=== PATIENT | male | born 1970 | race Caucasian/White ===

== ENCOUNTER 2019-06-16 18:08 | Observation (INO) | payer OTHER ==
[2019-06-16] MEDS ORDERED: NITROGLYCERIN SL TABS 0.4 MG TAB SUBLINGUAL STA (18:42)
[2019-06-16 19:03] LABS: Basophils # (A) 0.1 k/uL (0-0.2); Basophils % (A) 1 %; Eosinophils # (A) 0.2 k/uL (0-0.7); Eosinophils % (A) 2 %; HCT 48.1 % (39.0-53.0); HGB 15.6 gm/dL (13.0-17.5); Lymphocytes # (A) 2.2 k/uL (1.0-4.8); Lymphocytes % (A) 25 %; MCH 28.8 pg (25.0-35.0); MCHC 32.4 g/dL (31.0-37.0); MCV 88.7 fL (80.0-100.0); Mean Platelet Volume 7.4; Monocytes # (A) 0.5 k/uL (0-1.0); Monocytes % (A) 5 %; Neutrophils # (A) 5.7 k/uL (1.3-7.7); Neutrophils % (A) 64 %; Platelet Count 246 k/uL (150-450); RBC 5.42 m/uL (4.30-5.90); WBC 8.8 k/uL (3.8-10.6)
[2019-06-16 19:13] LABS: ALT 26 U/L (4-49); AST 31 U/L (17-59); African American GFR (CKD) >90 (>60 ml/min/1.73 sqM); Albumin 4.6 g/dL (3.5-5.0); Alkaline Phosphatase 60 U/L (38-126); Anion Gap 11 mmol/L; Blood Urea Nitrogen 24 mg/dL (9-20); Calcium 9.5 mg/dL (8.4-10.2); Carbon Dioxide 23 mmol/L (22-30); Chloride 106 mmol/L (98-107); Glucose 116 mg/dL (74-99); Magnesium 2.1 mg/dL (1.6-2.3); Non-African American GFR(CKD) 79 (>60 ml/min/1.73 sqM); Sodium 140 mmol/L (137-145); Total Bilirubin 0.6 mg/dL (0.2-1.3); Total Protein 7.4 g/dL (6.3-8.2)
[2019-06-16 19:21] LABS: D-Dimer 0.2 mg/L FEU (<0.60); Partial Thromboplastin Time 25.2 sec (22.0-30.0)
--- NOTE | 2019-06-16 19:25 | XR ---
EXAMINATION TYPE: XR chest 2V DATE OF EXAM: 06/16/2019 COMPARISON: NONE HISTORY: Chest pain TECHNIQUE: FINDINGS: Heart and mediastinum are normal. Lungs are clear. Diaphragm is normal. Bony thorax appears normal. There are chest leads. IMPRESSION: Normal chest.
--- NOTE | 2019-06-16 20:46 | ED ---
Chest Pain HPI - General Chief Complaint: Chest Pain Stated Complaint: Chest pressure Time Seen by Provider: 06/16/19 18:20 Source: patient Mode of arrival: ambulatory Limitations: no limitations - History of Present Illness Initial Comments: The patient is a 48-year-old male with no past medical history who presentsto the emergency room with reported chest pain. He states that it started yesterday. He describes it as a pressure sensation and feels as if something is sitting on his chest. He denies a previous history of cardiac disease. No ripping or tearing sensation to his back. He denies associated nausea, vomiting or diaphoresis. No cough or hemoptysis. He does smoke 10 cigarettes daily. He has a large family history of cardiac disease. States he had multiple uncles that from [place]. Denies abdominal pain. No unilateral numbness or weakness. There are no alleviating, precipitating or modifying factors - Related Data Previous Rx's Medication Instructions Recorded Omeprazole [PriLOSEC] 20 mg PO AC-BID #60 cap 06/17/19 Allergies Allergy/AdvReac Type Severity Reaction Status Date / Time No Known Allergies Allergy Verified 06/17/19 08:23 Review of Systems ROS Statement: Those systems with pertinent positive or pertinent negative responses have been documented in the HPI. ROS Other: All systems not noted in ROS Statement are negative. EKG Findings - EKG Comments: EKG Findings:: EKG demonstrates a sinus bradycardia with a ventricular rate of 49. GA interval 164. QRS 98. QTC of 404. No acute ST segment elevations or depressions concerning for ischemic changes. There is J-point elevation in the inferior and lateral leads. No reciprocal changes Past Medical History Past Medical History: No Reported History History of Any Multi-Drug Resistant Organisms: None Reported Past Surgical History: No Surgical Hx Reported Past Psychological History: No Psychological Hx Reported Smoking Status: Current every day smoker Past Alcohol Use History: Occasional Past Drug Use History: None Reported - Past Family History Mother Additional Family Medical History / Comment(s): desmoid tumor Father Family Medical History: No Reported History Brother(s) Family Medical History: No Reported History Son(s) Family Medical History: No Reported History General Exam Limitations: no limitations General appearance: alert, in no apparent distress Head exam: Present: atraumatic, normocephalic, normal inspection Eye exam: Present: normal appearance, PERRL, EOMI. Absent: scleral icterus, conjunctival injection, periorbital swelling ENT exam: Present: normal exam, mucous membranes moist Neck exam: Present: normal inspection. Absent: tenderness, meningismus, lymphadenopathy Respiratory exam: Present: normal lung sounds bilaterally. Absent: respiratory distress, wheezes, rales, rhonchi, stridor Cardiovascular Exam: Present: regular rate, normal rhythm, normal heart sounds. Absent: systolic murmur, diastolic murmur, rubs, gallop, clicks GI/Abdominal exam: Present: soft, normal bowel sounds. Absent: distended, tenderness, guarding, rebound, rigid Extremities exam: Present: normal inspection, full ROM, normal capillary refill. Absent: tenderness, pedal edema, joint swelling, calf tenderness Back exam: Present: normal inspection Neurological exam: Present: alert, oriented X3, CN II-XII intact Psychiatric exam: Present: normal affect, normal mood Skin exam: Present: warm, dry, intact, normal color. Absent: rash Course Vital Signs 06/16/19 06/16/19 06/16/19 18:18 18:30 20:59 Temperature 97.8 F Pulse Rate 60 51 L Pulse Rate [ 42 L Lean Sensei ] Pulse Rate [ Pulse Oximetery ] Respiratory 18 20 16 Rate Blood Pressure 133/73 125/88 Blood Pressure [Right Arm] O2 Sat by Pulse 98 97 Oximetry 06/16/19 21:43 Temperature 97.4 F L Pulse Rate Pulse Rate [ Lean Sensei ] Pulse Rate [ 56 L Pulse Oximetery ] Respiratory 16 Rate Blood Pressure Blood Pressure 124/63 [Right Arm] O2 Sat by Pulse 97 Oximetry Chest Pain MDM - MDM Upon arrival the patient is placed in room 4. A thorough history and physical exam was performed. EKG was performed which demonstrates no acute ST segment elevations. I did recommend laboratory studies and a chest x-ray. I did offer the patient something for pain control however refused. CBC and CPR unremarkable. D-dimer is negative. First troponin is negative. Chest x-ray demonstrates no acute findings. I did recommend hospital admission because of the patient's concerning story with risk factors. The patient did agree to this. A call discuss case with Dr. Salazar who accepted admission. The patient was transferred to the floor in stable condition Disposition Clinical Impression: Chest pain Disposition: ADMITTED IP TO THIS HOSP Condition: Stable Is patient prescribed a controlled substance at d/c from ED?: No Decision to Admit Reason: Admit from EC Decision Date: 06/16/19 Decision Time: 20:46
[2019-06-16] MEDS ORDERED: NALOXONE 0.4 MG/ML 1 ML VIAL IV PRN (20:47)
[2019-06-16] MEDS ORDERED: ASPIRIN 81 MG PO STA (23:11)
[2019-06-16] MEDS ORDERED: CLOPIDOGREL 75 MG TAB PO STA (23:12)
[2019-06-16] MEDS ORDERED: ATORVASTATIN 80 MG TAB PO STA (23:12)
--- NOTE | 2019-06-16 23:20 | P.HPIM ---
History of Present Illness H&P Date: 06/16/19 Patient is a 48-year-old male with a PMH of tobacco abuse who presented to the ED with complaints of substernal chest discomfort. The patient notes that since yesterday at around 3 PM, he has noticed a pressure like substernal discomfort, nonradiating, without associated symptoms, unable to quantify, no clear alleviating or exacerbating factors, intermittent, though not completely resolved since onset. The patient reports that he never had such symptoms in the past. He denied recent travel, leg pain, lower extremity swelling, shortness of breath, nausea, vomiting, diaphoresis, dizziness, headache. The patient reports a significant family history of cardiac issues with multiple family members who in their 40s from heart attacks. The patient has not seen a primary care physician in several years. He reportedly leads a very active lifestyle. At time of interview, he notes that he continues to have the discomfort, though it is not as severe as before. He denied any additional complaints at the interview. The patient underwent an extensive evaluation in the emergency room with troponin less than 0.012, WBC count 8.8, hemoglobin 15.6, platelets 246, sodium 140, potassium 4.0, BUN 24, creatinine 1.09, glucose 116, d-dimer 0.20, and proBNP 42. EKG revealed sinus bradycardia with PVCs at 49 bpm. Chest x-ray was unremarkable. The patient is being admitted to the [facility] service for cardiology evaluation for chest pain. Review of Systems Pertinent positives and negatives as discussed in HPI, a complete review of systems was performed and all other systems are negative. Past Medical History Past Medical History: No Reported History History of Any Multi-Drug Resistant Organisms: None Reported Past Surgical History: No Surgical Hx Reported Additional Past Anesthesia/Blood Transfusion Reaction / Comment(s): never had a surgery or blood transfusion Past Psychological History: No Psychological Hx Reported Smoking Status: Current every day smoker Past Alcohol Use History: Occasional Past Drug Use History: None Reported - Past Family History Mother Additional Family Medical History / Comment(s): desmoid tumor Father Family Medical History: No Reported History Brother(s) Family Medical History: No Reported History Son(s) Family Medical History: No Reported History Medications and Allergies Allergies Allergy/AdvReac Type Severity Reaction Status Date / Time No Known Allergies Allergy Verified 06/16/19 22:22 Physical Exam Vitals: Vital Signs Temp Pulse Pulse Pulse Resp BP BP 06/16/19 21:43 97.4 F L 56 L 16 124/63 06/16/19 20:59 51 L 16 125/88 06/16/19 18:30 42 L 20 06/16/19 18:18 97.8 F 60 18 133/73 Pulse Ox 06/16/19 21:43 97 06/16/19 20:59 97 06/16/19 18:30 06/16/19 18:18 98 Intake and Output 06/16/19 06/16/19 06/17/19 14:59 22:59 06:59 Other: Voiding Method Toilet Weight 81.647 kg General: non toxic, no distress, appears at stated age, overweight Derm: no unusual rashes/lesions no unusual ecchymoses, warm, dry Head: atraumatic, normocephalic, symmetric Eyes: EOMI, no lid lag, anicteric sclera, pupils equal round reactive to light ENT: Nose and ears atraumatic, no thrush, no pharyngeal erythema Neck: No thyromegaly, no cervical lymphadenopathy, trachea midline, supple Mouth: no lip lesion, mucus membranes moist Cardiovascular: S1S2 reg, no murmur, positive posterior tibial pulse bilateral, no edema, capillary refill less than 2 seconds, no chest wall tenderness on palpation Lungs: CTA bilateral, no rhonchi, no rales , no accessory muscle use Abdominal: soft, nontender to palpation, no guarding, no appreciable organomegaly, normal bowel sounds Ext: no gross muscle atrophy, muscle strength 5 out of 5 in all 4 extremities grossly, no contractures, Neuro: CN II-XI grossly intact, light touch intact all 4 extremities, finger to nose within normal limits, Psych: Alert, oriented, appropriate affect Results CBC & Chem 7: 06/16/19 18:53 06/16/19 18:53 Labs: Abnormal Lab Results - Last 24 Hours (Table) 06/16/19 Range/Units 18:53 BUN 24 H (9-20) mg/dL Glucose 116 H (74-99) mg/dL Thrombosis Risk Factor Assmnt - Choose All That Apply Any of the Below Risk Factors Present?: Yes Each Factor Represents 1 point: Obesity (BMI >25) Other Risk Factors: No Other congenital or acquired thrombophilia - If yes, enter type in comment: No Thrombosis Risk Factor Assessment Total Risk Factor Score: 1 Thrombosis Risk Factor Assessment Level: Low Risk Assessment and Plan Plan: Chest pain, rule out ACS -Cardiac monitoring -ASA 325 mg once and then daily -Plavix 75 mg once -Lipitor -Cardiology consult -Trend troponins -Obtain lipid panel, and A1c SAVITA, likely prerenal -Gentle IV hydration -Monitor BMP DVT prophylaxis -Rodney Score: 1 - low risk -IPCDs The patient is admitted with an anticipated less than 2 midnight stay for evaluation of chest pain CODE STATUS: Full Code Discussed with: Patient Anticipated discharge date: 1-[address]: Home A total of 35 minutes was spent on the care of this complex patient more than 50% of the time was spent in counseling and care coordination.
[2019-06-16] MEDS: SODIUM CHLORIDE 0.9% 1,000 ML IV SCH (23:47)
[2019-06-17 07:29] LABS: African American GFR (CKD) >90 (>60 ml/min/1.73 sqM); Anion Gap 8 mmol/L; Blood Urea Nitrogen 21 mg/dL (9-20); Calcium 9.2 mg/dL (8.4-10.2); Carbon Dioxide 24 mmol/L (22-30); Chloride 107 mmol/L (98-107); Glucose 96 mg/dL (74-99); Non-African American GFR(CKD) 88 (>60 ml/min/1.73 sqM); Potassium 4.7 mmol/L (3.5-5.1); Sodium 139 mmol/L (137-145)
[2019-06-17 07:55] LABS: Cholesterol 195 mg/dL (<200); HDL Cholesterol 54 mg/dL (40-60); LDL Cholesterol,Calculated 122 mg/dL (0-99); Triglycerides 96 mg/dL (<150)
[2019-06-17 08:06] VITALS: RESP 18
[2019-06-17] MEDS ORDERED: ASPIRIN 81 MG PO SCH (09:00)
--- NOTE | 2019-06-17 11:38 | P.CRDCN ---
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 Patient claims about 3 days ago while he was standing at the door, he developed a tight feeling across the chest as if somebody was sitting on his chest. The pain continued until next day. He went to the urgent care where he was evaluated by EKG. His EKG showed mild sinus bradycardia. Subsequently patient was referred to emergency room. Patient is admitted again with chest pain and it appeared that his pain improved after he received analgesic last night. His EKGs and cardiac enzymes are negative. Patient doesn't have any history of hypertension, diabetes, hypercholesterolemia or previous cardiac history. His maternal uncle had premature coronary artery disease. Mother had a pacemaker and father had a stroke. Patient's pains could be atypical angina. Patient is being scheduled for a stress echocardiogram and also surface echocardiogram. If the results of the tests were normal, patient could be discharged home. Review of Systems As per the chart Past Medical History Past Medical History: No Reported History History of Any Multi-Drug Resistant Organisms: None Reported Past Surgical History: No Surgical Hx Reported Additional Past Anesthesia/Blood Transfusion Reaction / Comment(s): never had a surgery or blood transfusion Past Psychological History: No Psychological Hx Reported Smoking Status: Current every day smoker Past Alcohol Use History: Occasional Past Drug Use History: None Reported - Past Family History Mother Additional Family Medical History / Comment(s): desmoid tumor Father Family Medical History: No Reported History Brother(s) Family Medical History: No Reported History Son(s) Family Medical History: No Reported History Medications and Allergies Home Medications Medication Instructions Recorded Confirmed Type No Known Home Medications 06/17/19 06/17/19 History Allergies Allergy/AdvReac Type Severity Reaction Status Date / Time No Known Allergies Allergy Verified 06/17/19 08:23 Physical Exam Vitals: Vital Signs Temp Pulse Pulse Pulse Resp BP BP 06/17/19 08:00 48 L 18 06/17/19 07:55 98.1 F 48 L 18 112/69 06/17/19 04:00 97.8 F 54 L 16 99/62 06/17/19 00:00 97.8 F 50 L 16 106/61 06/16/19 21:43 97.4 F L 56 L 16 124/63 06/16/19 20:59 51 L 16 125/88 06/16/19 18:30 42 L 20 06/16/19 18:18 97.8 F 60 18 133/73 Pulse Ox 06/17/19 08:00 06/17/19 07:55 99 06/17/19 04:00 99 06/17/19 00:00 96 06/16/19 21:43 97 06/16/19 20:59 97 06/16/19 18:30 06/16/19 18:18 98 Intake and Output 06/16/19 06/17/19 06/17/19 22:59 06:59 14:59 Other: Voiding Method Toilet Toilet Toilet Weight 81.647 kg GENERAL EXAM: Patient is alert and oriented and doesn't appear to be in any acute distress HEENT: Normocephalic. Normal reaction of pupils, equal size, normal range of extraocular motion. No erythema or exudates in the throat. NECK: No masses, no nuchal rigidity. CHEST: No chest wall deformity. LUNGS: Equal air entry with no crackles or wheeze. HEART: S1 and S2 normal with no audible mumurs or gallops. Regular rhythm, femorals equal on both sides.. ABDOMEN: No hepatosplenomegaly, normal bowel sounds, no guarding or rigidity. SKIN: No rashes CENTRAL NERVOUS SYSTEM: No focal deficits. EXTREMITIES: No cyanosis, clubbing or edema. Results 06/16/19 18:53 06/17/19 06:33 Cardiac Enzymes 06/16/19 06/16/19 06/17/19 Range/Units 18:53 18:53 01:08 AST 31 (17-59) U/L Troponin I <0.012 <0.012 (0.000-0.034) ng/mL 06/17/19 Range/Units 06:33 AST (17-59) U/L Troponin I <0.012 (0.000-0.034) ng/mL Coagulation 06/16/19 Range/Units 18:53 PT 10.0 (9.0-12.0) sec APTT 25.2 (22.0-30.0) sec Lipids 06/17/19 Range/Units 06:33 Triglycerides 96 (<150) mg/dL Cholesterol 195 (<200) mg/dL HDL Cholesterol 54 (40-60) mg/dL CBC 06/16/19 Range/Units 18:53 WBC 8.8 (3.8-10.6) k/uL RBC 5.42 (4.30-5.90) m/uL Hgb 15.6 (13.0-17.5) gm/dL Hct 48.1 (39.0-53.0) % Plt Count 246 (150-450) k/uL Comprehensive Metabolic Panel 06/16/19 06/17/19 Range/Units 18:53 06:33 Sodium 140 139 (137-145) mmol/L Potassium 4.0 4.7 (3.5-5.1) mmol/L Chloride 106 107 (98-107) mmol/L Carbon Dioxide 23 24 (22-30) mmol/L BUN 24 H 21 H (9-20) mg/dL Creatinine 1.09 0.99 (0.66-1.25) mg/dL Glucose 116 H 96 (74-99) mg/dL Calcium 9.5 9.2 (8.4-10.2) mg/dL AST 31 (17-59) U/L ALT 26 (4-49) U/L Alkaline Phosphatase 60 (38-126) U/L Total Protein 7.4 (6.3-8.2) g/dL Albumin 4.6 (3.5-5.0) g/dL Current Medications Generic Name Dose Route Start Last Admin Trade Name Freq PRN Reason Stop Dose Admin Aspirin 81 mg 06/17/19 09:00 06/17/19 10:19 Aspirin PO 81 mg DAILY SMITH Administration Sodium Chloride 1,000 mls @ 75 mls/hr 06/16/19 23:15 06/16/19 23:47 Saline 0.9% IV Not Given .[id number] SMITH Naloxone HCl 0.2 mg 06/16/19 20:47 Narcan IV Q2M PRN Opioid Reversal Intake and Output 06/16/19 06/17/19 06/17/19 22:59 06:59 14:59 Other: Voiding Method Toilet Toilet Toilet Weight 81.647 kg 06/16/19 18:53 06/17/19 06:33 EKG Interpretations (text) Sinus bradycardia Assessment and Plan (1) Sinus bradycardia Current Visit: Yes Status: Acute Code(s): R00.1 - BRADYCARDIA, UNSPECIFIED SNOMED Code(s): 31722638 (2) Chest pain Current Visit: Yes Status: Acute Code(s): R07.9 - CHEST PAIN, UNSPECIFIED SNOMED Code(s): 79514035 (3) Family history of ischemic heart disease Current Visit: Yes Status: Acute Code(s): Z82.49 - FAMILY HX OF ISCHEM HEART DIS AND OTH DIS OF THE CIRC SYS SNOMED Code(s): 222931300 Plan: Patient is being scheduled for a stress echocardiogram and also surface echocardiogram. If these tests are normal, patient could be discharged home
[2019-06-17] MEDS: SODIUM CHLORIDE 0.9% 1,000 ML IV SCH (12:53)
--- NOTE | 2019-06-17 13:00 | ECHOF ---
Referral Reason:Chest pain and cardiomyopathy MEASUREMENTS -------- HEIGHT: 170.2 cm WEIGHT: 81.6 kg BP: IVSd: 1.1 cm (0.6 - 1.1) LVIDd: 2.6 cm (3.9 - 5.3) LVPWd: 1.1 cm (0.6 - 1.1) IVSs: 1.8 cm LVIDs: 1.6 cm LVPWs: 1.7 cm LAESV Index (A-L): 23.98 ml/m Ao Diam: 2.7 cm (2.0 - 3.7) AV Cusp: 1.8 cm (1.5 - 2.6) LA Diam: 3.3 cm (2.7 - 3.8) MV EXCURSION: 14.054 mm (> 18.000) MV EF SLOPE: 80 mm/s (70 - 150) EPSS: 0.5 cm MV E Alex: 0.83 m/s MV DecT: 342 ms MV A Alex: 0.71 m/s MV E/A Ratio: 1.17 RAP: 5.00 mmHg RVSP: 19.98 mmHg TAPSE: 30.02 mm FINDINGS -------- Sinus rhythm with extra systolic beats. This was a technically good study. The left ventricular size is normal. Left ventricular wall thickness is normal. Overall left vent ricular systolic function is normal with, an EF between 55 - 60 %. The diastolic filling pattern is normal for the age of the patient 11.97. The right ventricle is normal in size. The right ventricular systolic function is normal. The left atrial size is normal. Normal LA size by volume 22+/-6 ml/m2. The right atrial size is normal. Aortic valve is trileaflet and is mildly thickened. The mitral valve is normal. The mitral valve leaflets are mildly thickened. Mild mitral regurgita tion is present. Mild tricuspid regurgitation present. Right ventricular systolic pressure is normal at < 35 mmHg. There is no pulmonic regurgitation present. The aortic root size is normal. IVC Not well visulized. There is no pericardial effusion. CONCLUSIONS -------- 1. Sinus rhythm with extra systolic beats. 2. This was a technically good study. 3. The left ventricular size is normal. 4. Left ventricular wall thickness is normal. 5. Overall left ventricular systolic function is normal with, an EF between 55 - 60 %. 6. The diastolic filling pattern is normal for the age of the patient 11.97 7. The right ventricle is normal in size. 8. The right ventricular systolic function is normal. 9. The left atrial size is normal. 10. Normal LA size by volume 22+/-6 ml/m2. 11. The right atrial size is normal. 12. Aortic valve is trileaflet and is mildly thickened. 13. The mitral valve is normal. 14. The mitral valve leaflets are mildly thickened. 15. Mild mitral regurgitation is present. 16. Mild tricuspid regurgitation present. 17. Right ventricular systolic pressure is normal at < 35 mmHg. 18. There is no pulmonic regurgitation present. 19. The aortic root size is normal. 20. IVC Not well visulized. 21. There is no pericardial effusion. ADMINISTRATIVE OFFICE ASSISTANT: Anni Castaneda RDCS
--- NOTE | 2019-06-17 13:10 | P.STRESS ---
- Stress Test Note Stress Test Results/Findings: Exam Performed: stress echo exercise Exam Date: 06/17/19 Reason for Exam: CHEST PAIN Height: 5 ft 7 in Weight: 81.65 kg Protocol: STRESS ECHO Stage: 4 Duration of Exercise: 12:30 MINUTES Resting Heart Rate: 48 Resting Blood Pressure: 110/71 Maximum Achieved Heart Rate: 147 Maximum Achieved Blood Pressure: 197/39 85% PMHR: 145 100% PMHR: 170 METS: 12.7 Technologist Comment: Stress Test Results/Findings: This is a 48-year-old gentleman was admitted to the hospital with complaints of chest pain. History of smoking and family history of ischemic heart disease. Stress data: Baseline EKG showed sinus rhythm and sinus bradycardia. Blood pressure at rest is 110/70 with pulse rate of 48. Patient walked on the Ahmet protocol for 12 minutes and 30 seconds achieving a maximum heart rate of 147 with a blood pressure 165/80. EKGs taken during and after x-ray did not reveal any changes of ischemia. Echo data: Baseline echo images show normal wall motion and thickening. Exercise echo images showed augmentation of wall motion and thickening in all segments. Final impression: #1. Negative stress test #2. Negative stress echo
[2019-06-17 13:14] VITALS: BP 140/63; PULSE 58
[2019-06-17 13:15] VITALS: TEMP 97.6
--- NOTE | 2019-06-17 14:49 | P.DS ---
Providers Date of admission: 06/16/19 20:47 Attending physician: Vance Salazar MD Consults: 06/16/19 20:47 Consult Physician Urgent Consulting Provider: [facility] Consult Reason/Comments: acute chest pain Do you want consulting provider notified?: Yes Primary care physician: Stated None Hospital Course: Final diagnoses at discharge Chest pain from heartburn Negative stress test Hospital course 48-year-old male with active tobacco smoking nicotine dependence. Comes in for substernal chest pain described as pressure. He was evaluated by cardiology stress test was done and was negative patient was cleared by cardiology for discharge. Patient reports long-standing history of heartburn with off-and-on symptoms. Patient was given aspirin and sublingual nitro. Troponins were negative 3, initial EKG showed sinus bradycardia with premature ventricular complexes. Patient was seen and examined on discharge currently asymptomatic denies any chest pain or trouble breathing we had long discussion regarding heartburn and how to decrease the severity of symptoms and recommendations regarding having an EGD Patient alert oriented 3 conversant pleasant Clear to auscultation bilaterally no wheezes rhonchi or rales Heart regular S1-S2 no murmurs gallops or rubs Extremities no tenderness to palpation bilaterally over the calf muscles, no leg edema Patient was given resources for outpatient PCP Patient discharged in stable clinical condition case discussed with the patient and his parents at bedside questions answered Prescription for PPI was sent to the pharmacy 20 minutes were spent in the discharge of this patient 50% of the time was spent counseling and Trish care Procedures: negative stress test Patient Condition at Discharge: Stable Plan - Discharge Summary Discharge Rx Participant: No New Discharge Prescriptions: New Omeprazole [PriLOSEC] 20 mg PO AC-BID #60 cap Discharge Medication List Omeprazole [PriLOSEC] 20 mg PO AC-BID #60 cap 06/17/19 [Rx] Follow up Appointment(s)/Referral(s): None,Stated [Primary Care Provider] - 1-2 days Brian Parish MD [STAFF PHYSICIAN] - 1 Week Mer Leigh MD [STAFF PHYSICIAN] - 1 Week Patient Instructions/Handouts: Chest Pain (ED), Gastroesophageal Reflux Disease (DC) Discharge Disposition: HOME SELF-CARE Care Plan Goals (MU): consider OP EGD
== END 2019-06-17 15:44 | disposition home or self-care (01) ==
LOC: EC 18:08 → 1SOBS 20:47
PROVIDERS: ADMIT Internal Medicine; ATTEND Internal Medicine
DX: R07.89 Other chest pain (principal); R12 Heartburn; N17.9 Acute kidney failure, unspecified; F17.210 Nicotine dependence, cigarettes, uncomplicated; R00.1 Bradycardia, unspecified; Z79.899 Other long term (current) drug therapy; Z82.49 Family history of ischemic heart disease and other diseases of the circulatory system; I34.0 Nonrheumatic mitral (valve) insufficiency; I07.1 Rheumatic tricuspid insufficiency
CPT/HCPCS: 93005 ×2; 99285; 36415; 93306; 93351; 85379; 83880; 80061; 80053; 80048; 83690; 83735; 84484 ×2; 85025; 85610; 85730; 71046; G0378 ×2

== ENCOUNTER 2021-01-06 14:10 | Emergency (ER) | payer OTHER ==
--- NOTE | 2021-01-06 15:36 | ED ---
Fall HPI - General Chief Complaint: Fall Stated Complaint: [facility] - fall, back pain Time Seen by Provider: 01/06/21 15:35 Source: patient Mode of arrival: ambulatory - History of Present Illness Initial Comments: Ryan is a healthy 50-year-old gentleman who presents the ER today via private vehicle for evaluation of back pain after fall. Patient works for a [employer], he was attempting to move a lawnmower truck onto his landing, he misstepped and injured up hopping backwards off a three-foot ledge landing directly on his feet. It told him so bad when THE wind out of him. He's had persistent thoracic back pain since that time. He has been ambulatory with minimal pain in his feet. Came to ER for evaluation of back pain. - Related Data Previous Rx's Medication Instructions Recorded Omeprazole [PriLOSEC] 20 mg PO AC-BID #60 cap 06/17/19 Allergies Allergy/AdvReac Type Severity Reaction Status Date / Time No Known Allergies Allergy Verified 01/06/21 15:24 Review of Systems ROS Statement: Those systems with pertinent positive or pertinent negative responses have been documented in the HPI. ROS Other: All systems not noted in ROS Statement are negative. Past Medical History Past Medical History: No Reported History History of Any Multi-Drug Resistant Organisms: None Reported Past Surgical History: No Surgical Hx Reported Additional Past Anesthesia/Blood Transfusion Reaction / Comment(s): never had a surgery or blood transfusion Past Psychological History: No Psychological Hx Reported Smoking Status: Current every day smoker Past Alcohol Use History: Occasional Past Drug Use History: Marijuana - Past Family History Mother Additional Family Medical History / Comment(s): desmoid tumor Father Family Medical History: No Reported History Brother(s) Family Medical History: No Reported History Son(s) Family Medical History: No Reported History General Exam - General Exam Comments Initial Comments: Physical Exam GENERAL: Patient is well-developed and well-nourished. Patient is nontoxic and well- hydrated and is in no distress. HENT: Normocephalic, Atraumatic. EYES: PERRL, EOMI PULMONARY: Unlabored respirations. No audible rales rhonchi or wheezing was noted. CARDIOVASCULAR: There is a regular rate and rhythm without any murmurs gallops or rubs. ABDOMEN: Soft and nontender with normal bowel sounds. SKIN: Skin is clear with no lesions or rashes and otherwise unremarkable. : Deferred NEUROLOGIC: Patient is alert and oriented x3. Moving all extremities spontaneously MUSCULOSKELETAL: Midline spinal tenderness at approximately T9 through T11 PSYCHIATRIC: Normal psychiatric evaluation. Limitations: no limitations Course Vital Signs 01/06/21 15:19 Temperature 98.1 F Pulse Rate 58 L Respiratory 17 Rate Blood Pressure 147/75 O2 Sat by Pulse 97 Oximetry Medical Decision Making - Medical Decision Making She was seen and evaluated, physical exam is relatively unremarkable, x-rays were obtained and were negative for any acute findings, patient declined pain medication as he took Motrin prior to arrival. Patient is discharged home in stable condition. Disposition Clinical Impression: Fall Disposition: HOME SELF-CARE Condition: Stable Instructions (If sedation given, give patient instructions): Fall Prevention (ED) Is patient prescribed a controlled substance at d/c from ED?: No Referrals: None,Stated [Primary Care Provider] - 1-2 days
--- NOTE | 2021-01-06 16:25 | XR ---
EXAMINATION TYPE: XR calcaneus 2V BILATERAL DATE OF EXAM: 01/06/2021 COMPARISON: NONE HISTORY: Fall injury with pain TECHNIQUE: 2 views bilateral calcanei. FINDINGS: No acute fracture or dislocation in either calcaneus. Boehler's angle is maintained bilater ally. Soft tissues are unremarkable bilaterally. IMPRESSION: As above.
--- NOTE | 2021-01-06 16:26 | XR ---
EXAMINATION TYPE: XR lumbar spine 2 or 3V DATE OF EXAM: 01/06/2021 CLINICAL HISTORY: Fall injury with pain TECHNIQUE: Frontal and lateral images of the lumbar spine are obtained. COMPARISON: None FINDINGS: There are 5 lumbar type vertebral bodies identified. The lumbar spine shows satisfactory alignment without evidence of acute fracture or dislocation. Vertebral body heights and disk space he ights are within normal limits. Spina bifida defect at S1 level incidentally noted. Mild distal arter ial vascular calcification. IMPRESSION: No acute fracture or dislocation is seen in the lumbar spine.
--- NOTE | 2021-01-06 16:28 | XR ---
EXAMINATION TYPE: XR thoracic spine complete DATE OF EXAM: 01/06/2021 CLINICAL HISTORY: Fall injury with mid back pain. TECHNIQUE: Frontal, lateral, and swimmer's view of thoracic spine are obtained. COMPARISON: Chest x-ray June 16, 2019. FINDINGS: Thoracic spine show 6 stable and satisfactory alignment without evidence of acute fracture or dislocation. Vertebral body heights and disc space heights remain satisfactory. Mild to moderate multilevel anterior and lateral spurring is seen. Possible 1.0 cm calculus upper pole left kidney. IMPRESSION: No acute fracture or dislocation is seen in the thoracic spine.
[2021-01-06 17:22] VITALS: BP 137/88; PULSE 77; RESP 18; TEMP 97.9
== END 2021-01-06 17:22 | disposition home or self-care (01) ==
LOC: EC 14:10
DX: M54.6 Pain in thoracic spine (principal); W10.8XXA Fall (on) (from) other stairs and steps, initial encounter; Y99.0 Civilian activity done for income or pay
CPT/HCPCS: 72072; 72100; 99284